=== PATIENT | female | born 1990 | race Caucasian/White ===

== ENCOUNTER 2017-06-06 09:36 | Emergency (ER) | payer OTHER, MEDICAID ==
[~2017-06-06] VITALS: Ht 165.1 cm; Wt 94.0 kg
[2017-06-06 10:19] LABS: BASOPHILS # (AUTO) 0.1 X10'3 (0-0.2); BASOPHILS % (AUTO) 0.7 % (0-1); EOSINOPHILS # (AUTO) 0.1 X10'3 (0-0.9); EOSINOPHILS % (AUTO) 1.2 % (0-6); HEMATOCRIT 42.9 % (35.0-45.0); HEMOGLOBIN 15.3 g/dl (12.0-16.0); LYMPHOCYTES # (AUTO) 3.8 X10'3 (1.1-4.8); LYMPHOCYTES % (AUTO) 35.4 % (21-51); MEAN CORPUSCULAR HEMOGLOBIN 32.2 PG (27.0-31.0); MEAN CORPUSCULAR HGB CONC 35.6 % (33.0-36.5); MEAN CORPUSCULAR VOLUME 90.6 FL (78-98); MEAN PLATELET VOLUME 8.6 FL (7.4-10.4); MONOCYTES # (AUTO) 0.7 X10'3 (0-0.9); NEUTROPHILS # (AUTO) 5.9 X10'3 (1.8-7.7); NEUTROPHILS % (AUTO) 55.7 % (42-75); PLATELET COUNT 241 X10'3 (140-440); RED BLOOD COUNT 4.73 X10'6 (4.20-5.60); RED CELL DISTRIBUTION WIDTH 12.8 % (11.5-14.5); WHITE BLOOD COUNT 10.6 X10'3 (4.5-11.0)
[2017-06-06 10:29] LABS: PARTIAL THROMBOPLASTIN TIME 28 SECONDS (22-32); PROTHROMBIN TIME 10.4 SECONDS (9.0-12.0)
[2017-06-06 10:34] LABS: ALANINE AMINOTRANSFERASE 42 U/L (12-78); ALBUMIN 3.7 G/DL (3.4-5.0); ALBUMIN/GLOBULIN RATIO 0.9 (1.1-1.5); ALKALINE PHOSPHATASE 72 IU/L (46-116); ANION GAP 9 (8-16); ASPARTATE AMINO TRANSFERASE 29 U/L (10-37); BILIRUBIN,TOTAL 0.6 MG/DL (0.1-1.0); BLOOD UREA NITROGEN 8 MG/DL (7-18); BUN/CREATININE RATIO 13.1 (6.6-38.0); CALCIUM 8.8 MG/DL (8.5-10.1); CHLORIDE 105 MMOL/L (99-107); CREATININE 0.61 MG/DL (0.40-0.90); GLUCOSE 90 MG/DL (70-104); POTASSIUM 3.9 MMOL/L (3.5-5.1); SODIUM 142 MMOL/L (135-145); TOTAL PROTEIN 7.6 G/DL (6.4-8.2); eGFR > 90 ML/MIN
[2017-06-06 14:54] VITALS: BP 155/74
== END 2017-06-06 15:07 | disposition home or self-care (01) ==
LOC: ER 09:37
DX: R00.2 Palpitations (principal); F12.10 Cannabis abuse, uncomplicated; Z91.040 Latex allergy status; Z88.2 Allergy status to sulfonamides
CPT/HCPCS: 36415; 71045; 80053; 84484; 85025; 85610; 85730; 93005; 99285

== ENCOUNTER 2018-01-24 14:08 | Emergency (ER) | payer OTHER, MEDICAID ==
[~2018-01-24] VITALS: Ht 165.1 cm; Wt 91.4 kg
[2018-01-24 15:05] LABS: CLARITY,URINE SLIGHTLY CLOUDY (Clear); COLOR,URINE YELLOW (Yellow); GLUCOSE, URINE NEGATIVE (Neg); KETONES,URINE NEGATIVE (Neg); LEUKOCYTE ESTERASE ,URINE NEGATIVE (Neg); NITRITES, URINE NEGATIVE (Neg); OCCULT BLOOD,URINE TRACE-INTACT (Neg); PROTEIN,URINE NEGATIVE (Neg); URINE HCG NEGATIVE (NEG); UROBILINOGEN,URINE 0.2 E.U/dL (0.2-1.0)
[2018-01-24 15:06] LABS: UA COLLECTION TYPE CLN CATCH MIDSTREAM
[2018-01-24 15:13] LABS: MUCUS STRANDS MANY /LPF (Neg); SQUAMOUS EPITHELIAL CELL,UR MANY /LPF (FEW); TRANSITIONAL EPI CELLS,URINE FEW /HPF
[2018-01-24 15:14] LABS: BACTERIA,URINE FEW /HPF (Neg); WBC,URINE 0-4 /HPF (0-4)
[2018-01-24 15:17] LABS: BASOPHILS # (AUTO) 0.1 X10'3 (0-0.2); BASOPHILS % (AUTO) 0.4 % (0-1); EOSINOPHILS # (AUTO) 0.2 X10'3 (0-0.9); EOSINOPHILS % (AUTO) 1.5 % (0-6); HEMOGLOBIN 14.6 g/dl (12.0-16.0); LYMPHOCYTES # (AUTO) 3.3 X10'3 (1.1-4.8); LYMPHOCYTES % (AUTO) 20.9 % (21-51); MEAN CORPUSCULAR HEMOGLOBIN 31.1 PG (27.0-31.0); MEAN CORPUSCULAR HGB CONC 33.9 % (33.0-36.5); MEAN CORPUSCULAR VOLUME 91.5 FL (78-98); MEAN PLATELET VOLUME 8.6 FL (7.4-10.4); MONOCYTES # (AUTO) 1.1 X10'3 (0-0.9); MONOCYTES % (AUTO) 7.1 % (2-12); NEUTROPHILS # (AUTO) 11.1 X10'3 (1.8-7.7); NEUTROPHILS % (AUTO) 70.1 % (42-75); PLATELET COUNT 272 X10'3 (140-440); WHITE BLOOD COUNT 15.8 X10'3 (4.5-11.0)
[2018-01-24 15:32] LABS: ALANINE AMINOTRANSFERASE 32 U/L (12-78); ALBUMIN 3.7 G/DL (3.4-5.0); ALBUMIN/GLOBULIN RATIO 0.9 (1.1-1.5); ALKALINE PHOSPHATASE 70 IU/L (46-116); ANION GAP 10 (8-16); ASPARTATE AMINO TRANSFERASE 20 U/L (10-37); BILIRUBIN,TOTAL 0.4 MG/DL (0.1-1.0); BLOOD UREA NITROGEN 13 MG/DL (7-18); BUN/CREATININE RATIO 16.9 (6.6-38.0); CALCIUM 8.8 MG/DL (8.5-10.1); CHLORIDE 103 MMOL/L (99-107); CREATININE 0.77 MG/DL (0.40-0.90); GLUCOSE 101 MG/DL (70-104); POTASSIUM 3.7 MMOL/L (3.5-5.1); SODIUM 138 MMOL/L (135-145); TOTAL CARBON DIOXIDE 25.3 MMOL/L (24-32); TOTAL PROTEIN 7.6 G/DL (6.4-8.2); eGFR 89 ML/MIN
[2018-01-24] MEDS ORDERED: normal saline 1000ML IV soln IV ONE (15:50)
[2018-01-24] MEDS ORDERED: ondansetron/PF 4mg/2ml inj IV ONE (15:50)
[2018-01-24] MEDS ORDERED: morphine 4 MG/ML inj SYRINge IV ONE (15:50)
[2018-01-24 16:42] LABS: PARTIAL THROMBOPLASTIN TIME 27 SECONDS (22-32); PROTHROMBIN TIME 10.4 SECONDS (9.0-12.0)
[2018-01-24] MEDS ORDERED: ketorolac trometh. 30mg/ml inj. IV ONE (16:55)
[2018-01-24] MEDS ORDERED: CefTRIAXone 2gm/D5W 50ml 50 ML IV ONE (16:55)
[2018-01-24 17:06] VITALS: BP 146/78
[2018-01-24] MEDS ORDERED: CEPH-572 PO (17:24)
[2018-01-24] MEDS ORDERED: HYDR-4353 PO (17:24)
[2018-01-24] MEDS ORDERED: IBUP-1984 PO (17:24)
== END 2018-01-24 18:11 | disposition home or self-care (01) ==
LOC: ER 14:08
DX: N20.0 Calculus of kidney (principal); R10.31 Right lower quadrant pain; F12.90 Cannabis use, unspecified, uncomplicated; Z91.040 Latex allergy status; Z88.2 Allergy status to sulfonamides
CPT/HCPCS: 36415; 74176; 80053; 81001; 81025; 83605; 84145; 85025; 85610; 85730; 87040; 93005; 96361; 96365; 96375; 99285; J0696; J1885; J2270; J2405; J7030

== ENCOUNTER 2021-12-20 03:22 | Emergency (ER) | payer BC, MEDICAID, OTHER ==
[~2021-12-20] VITALS: Ht 162.6 cm; Wt 100.0 kg
[2021-12-20] MEDS ORDERED: normal saline 1000ML IV soln IVB ONE (03:40)
[2021-12-20] MEDS ORDERED: diphenhydrAMINE 50 mg/ml inj IV ONE (03:40)
[2021-12-20] MEDS ORDERED: ketorolac trometh. 30mg/ml inj. IV ONE (03:40)
[2021-12-20] MEDS ORDERED: proCHLORperazine 10 MG/2 ml inj IV ONE (03:40)
[2021-12-20 05:18] VITALS: BP 173/101
--- NOTE | 2021-12-20 06:02 | NUR ---
pain on painscale now 06/19
[2021-12-20] MEDS ORDERED: normal saline 1000ml 1,000 ML IV ONE (06:40)
[2021-12-20] MEDS ORDERED: dexamethasone sod phosphate 10mg/ml inj IV STA (06:40)
[2021-12-20] MEDS ORDERED: SUMAtriptan succ. 6 MG/0.5ml vial SQ ONE (06:40)
--- NOTE | 2021-12-20 07:00 | NUR ---
Attempted to medicate pt, however she was going to CT. Meds held for short time.
--- NOTE | 2021-12-20 07:20 | NUR ---
Pt reports pain only with movement of her head, no pain while at rest.
[2021-12-20] MEDS ORDERED: SUMA50TA PO (07:59)
[2021-12-20] MEDS ORDERED: ONDA8TAB13 PO (08:13)
== END 2021-12-20 08:36 | disposition home or self-care (01) ==
LOC: ER 03:24
DX: G43.909 Migraine, unspecified, not intractable, without status migrainosus (principal); R11.10 Vomiting, unspecified; F12.90 Cannabis use, unspecified, uncomplicated; Z72.89 Other problems related to lifestyle; Z91.040 Latex allergy status; Z88.2 Allergy status to sulfonamides
CPT/HCPCS: 70450; 96361; 96372; 96374; 96375; 99284; J0780; J1100; J1200; J1885; J3030; J7030